=== PATIENT | male | born 1975 | race Hispanic/Latino ===

== ENCOUNTER 2018-11-27 18:56 | Emergency (ER) | payer OTHER ==
[2018-11-27] MEDS ORDERED: KETOROLAC TROMETHAMINE 15MG/ML ONE (19:38)
[2018-11-27] MEDS ORDERED: TETANUS/DIPHTHERIA TOXOID [ADULT] 0.5 ML VIAL IM ONE (19:39)
[2018-11-27 19:44] LABS: BASOPHILS % (AUTO) 0.9 % (0.0-5.0); EOSINOPHILS % (AUTO) 0.9 % (0.0-8.0); HEMATOCRIT 45.7 % (42-54); LYMPHOCYTES % (AUTO) 13.5 % (21.0-51.0); MEAN CORPUSCULAR HEMOGLOBIN 32.7 pg (27.0-33.0); MEAN CORPUSCULAR HGB CONC 33.9 g/dL (32.0-36.0); MEAN CORPUSCULAR VOLUME 96.4 fL (79-99); MONOCYTES % (AUTO) 7.5 % (3.0-13.0); NEUTROPHILS % (AUTO) 77.2 % (40.0-77.0); NUCLEATED RED BLOOD CELLS 0.1 % (0.0-0.19); PLATELET COUNT (AUTO) 283 K/uL (130-400); RED BLOOD CELL COUNT(AUTO) 4.75 MIL/uL (4.50-6.20); RED CELL DISTRIBUTION WIDTH 13.9 % (11.0-15.5); WHITE BLOOD COUNT (AUTO) 11.9 K/uL (4.8-10.8)
[2018-11-27 19:52] LABS: POTASSIUM 4.2 mmol/L (3.5-5.1)
[2018-11-27 19:57] LABS: ALBUMIN 3.7 g/dL (3.5-5.0); BILIRUBIN,TOTAL 0.2 mg/dL (0.2-1.0); TOTAL PROTEIN, SERUM 6.8 g/dL (6.0-8.3)
[2018-11-27] MEDS ORDERED: IOHEXOL-350 50ML VIAL IV ONE ×2 (20:53→21:21)
== END 2018-11-27 23:07 | disposition home or self-care (01) ==
LOC: EDH 18:56
DX: S06.0X0A Concussion without loss of consciousness, initial encounter (principal); S50.12XA Contusion of left forearm, initial encounter; S30.0XXA Contusion of lower back and pelvis, initial encounter; S10.93XA Contusion of unspecified part of neck, initial encounter; Z90.49 Acquired absence of other specified parts of digestive tract; Z88.0 Allergy status to penicillin; Y04.8XXA Assault by other bodily force, initial encounter; Y93.89 Activity, other specified; Y92.89 Other specified places as the place of occurrence of the external cause; Y99.8 Other external cause status
CPT/HCPCS: 36415; 70450; 70491; 71045; 73090; 80053; 85025; 90471; 90714; 96374; 99285; J1885; Q9967 ×2

== ENCOUNTER 2019-05-21 13:27 | Emergency (ER) | payer SELFPAY ==
[2019-05-21] MEDS ORDERED: ACETAMINOPHEN EXTRA STRENGTH 500 MG TABLET ONE (13:46)
[2019-05-21] MEDS ORDERED: HYDROXYZINE HCL 25 MG TABLET ONE (13:46)
== END 2019-05-21 14:12 | disposition home or self-care (01) ==
LOC: EDH 13:27
DX: F41.8 Other specified anxiety disorders (principal); M79.10 Myalgia, unspecified site; F32.9 Major depressive disorder, single episode, unspecified; Z90.49 Acquired absence of other specified parts of digestive tract; Z72.0 Tobacco use; Z88.0 Allergy status to penicillin

== ENCOUNTER 2019-05-23 11:55 | Emergency (ER) | payer SELFPAY | END 2019-05-23 12:54 | LOC: EDH 11:55 | DX: S00.83XA Contusion of other part of head, initial encounter (principal); H02.844 Edema of left upper eyelid; F32.9 Major depressive disorder, single episode, unspecified; F41.9 Anxiety disorder, unspecified; Z72.0 Tobacco use; Z88.0 Allergy status to penicillin; Y04.0XXA Assault by unarmed brawl or fight, initial encounter; Y93.89 Activity, other specified; Y92.89 Other specified places as the place of occurrence of the external cause; Y99.8 Other external cause status ==

== ENCOUNTER 2021-10-26 20:50 | Emergency (ER) | payer OTHER ==
[2021-10-26] MEDS ORDERED: NITROGLYCERIN 1GM OINT 1 INCH/1GM TD ONE ×2 (21:00→21:30)
[2021-10-26] MEDS ORDERED: ASPIRIN 325MG TAB ONE (21:00)
[2021-10-26 21:15] LABS: BASOPHILS % (AUTO) 0.8 % (0.0-5.0); EOSINOPHILS % (AUTO) 0.2 % (0.0-8.0); HEMATOCRIT 43.2 % (42-54); LYMPHOCYTES % (AUTO) 11.3 % (21.0-51.0); MEAN CORPUSCULAR HEMOGLOBIN 30.6 pg (27.0-33.0); MEAN CORPUSCULAR HGB CONC 33.3 g/dL (32.0-36.0); MEAN CORPUSCULAR VOLUME 91.9 fL (79-99); MONOCYTES % (AUTO) 7.3 % (3.0-13.0); NEUTROPHILS % (AUTO) 79.5 % (40.0-77.0); PLATELET COUNT (AUTO) 344 K/uL (130-400); RED CELL DISTRIBUTION WIDTH 13.1 % (11.0-15.5); WHITE BLOOD COUNT (AUTO) 13.1 K/uL (4.8-10.8)
[2021-10-26] MEDS ORDERED: ASPIRIN 325MG TAB PO ONE (21:30)
[2021-10-26 21:32] LABS: CREATININE 1.4 mg/dL (0.5-1.5)
[2021-10-26 21:39] LABS: ALBUMIN 4.6 g/dL (3.5-5.0); BILIRUBIN,TOTAL 0.5 mg/dL (0.2-1.0); TOTAL PROTEIN, SERUM 8.3 g/dL (6.0-8.3)
[2021-10-26 21:54] LABS: APPEARANCE,URINE Cloudy (CLEAR); BILIRUBIN,URINE Small (NEGATIVE); COLOR,URINE Dark Yellow (YELLOW); GLUCOSE, URINE (UA) Negative (NEGATIVE); KETONES,URINE 40 mg/dL (NEGATIVE); LEUKOCYTE ESTERASE ,URINE Trace (NEGATIVE); NITRATE,URINE Negative (NEGATIVE); OCCULT BLOOD,URINE Negative (NEGATIVE); PH,URINE 5.5 (5.0-8.0); PROTEIN,URINE POS 2+ mg/dL (NEGATIVE)
[2021-10-26] MEDS ORDERED: POTASSIUM BICARB/CIT AC 25 MEQ TABLET.EFF PO ONE (22:00)
[2021-10-26] MEDS ORDERED: ONDANSETRON 4MG INJ IVP ONE (22:00)
[2021-10-26 22:01] LABS: AMPHET/METH SCREEN,URINE NEGATIVE (NEGATIVE); BACTERIA,URINE Few /HPF (None Seen); BARBITURATE SCREEN, URINE NEGATIVE (NEGATIVE); BENZODIAZEPINES SCREEN,URINE NEGATIVE (NEGATIVE); CANNABINOID SCREEN,URINE POSITIVE (NEGATIVE); COCAINE SCREEN,URINE POSITIVE (NEGATIVE); HYALINE CASTS, URINE 0-1 /LPF (0-1 /LPF); MUCUS,URINE Moderate LPF (None Seen); OPIATE SCREEN,URINE NEGATIVE (NEGATIVE); PHENCYCLIDINE SCREEN,URINE NEGATIVE (NEGATIVE); SQUAMOUS EPITHELIAL CELL,UR Few /HPF (0-2)
[2021-10-26 22:30] VITALS: BP 151/106
[2021-10-26] MEDS ORDERED: AMIO200T68 PO (23:29)
[2021-10-26] MEDS ORDERED: ASPI-1197 PO (23:29)
[2021-10-26] MEDS ORDERED: ATOR-2 PO (23:30)
[2021-10-26] MEDS ORDERED: DILT240T13 PO (23:31)
[2021-10-26] MEDS ORDERED: LOSA25TA41 PO (23:32)
[2021-10-26] MEDS ORDERED: ISOS60TA77 PO (23:32)
[2021-10-26] MEDS ORDERED: PRAS10TA9 PO (23:33)
[2021-10-26] MEDS ORDERED: METF-526 PO (23:33)
== END 2021-10-26 22:33 | disposition left against medical advice (07) ==
LOC: EDH 20:50
DX: R07.89 Other chest pain (principal); E87.6 Hypokalemia; F14.10 Cocaine abuse, uncomplicated; R11.2 Nausea with vomiting, unspecified; I10 Essential (primary) hypertension; Z88.0 Allergy status to penicillin; Z79.82 Long term (current) use of aspirin
CPT/HCPCS: 36415; 71045; 80053; 80305; 81001; 84484; 85025; 93005 ×2; 96374; 99285; J2405

== ENCOUNTER 2021-11-01 00:46 | Emergency (ER) | payer OTHER ==
[~2021-11-01] VITALS: Ht 170.2 cm; Wt 99.3 kg
[~2021-11-01 00:46] MED LIST: AMIO200T68 PO; ASPI-1197 PO; ATOR-2 PO; DILT240T13 PO; ISOS60TA77 PO; LOSA25TA41 PO; METF-526 PO; PRAS10TA9 PO
[2021-11-01 01:04] LABS: BASOPHILS % (AUTO) 1.2 % (0.0-5.0); EOSINOPHILS % (AUTO) 1.6 % (0.0-8.0); HEMATOCRIT 39.6 % (42-54); LYMPHOCYTES % (AUTO) 18.5 % (21.0-51.0); MEAN CORPUSCULAR HEMOGLOBIN 30.3 pg (27.0-33.0); MEAN CORPUSCULAR HGB CONC 32.3 g/dL (32.0-36.0); MEAN CORPUSCULAR VOLUME 93.8 fL (79-99); MONOCYTES % (AUTO) 10.8 % (3.0-13.0); NEUTROPHILS % (AUTO) 66.7 % (40.0-77.0); PLATELET COUNT (AUTO) 259 K/uL (130-400); RED BLOOD CELL COUNT(AUTO) 4.22 MIL/uL (4.50-6.20); RED CELL DISTRIBUTION WIDTH 13.2 % (11.0-15.5); WHITE BLOOD COUNT (AUTO) 8.9 K/uL (4.8-10.8)
[2021-11-01 01:13] LABS: CREATININE 0.8 mg/dL (0.5-1.5); POTASSIUM 3.3 mmol/L (3.5-5.1)
[2021-11-01 01:18] LABS: ALBUMIN 3.5 g/dL (3.5-5.0); BILIRUBIN,TOTAL 0.1 mg/dL (0.2-1.0); TOTAL PROTEIN, SERUM 6.5 g/dL (6.0-8.3)
[2021-11-01 02:00] LABS: APPEARANCE,URINE Clear (CLEAR); BILIRUBIN,URINE Negative (NEGATIVE); COLOR,URINE Yellow (YELLOW); GLUCOSE, URINE (UA) Negative (NEGATIVE); KETONES,URINE Negative (NEGATIVE); LEUKOCYTE ESTERASE ,URINE Negative (NEGATIVE); NITRATE,URINE Negative (NEGATIVE); OCCULT BLOOD,URINE Negative (NEGATIVE); PROTEIN,URINE Negative (NEGATIVE)
[2021-11-01] MEDS ORDERED: ASPIRIN 81MG CHEW TAB PO ONE (02:00)
[2021-11-01] MEDS ORDERED: NITROGLYCERIN 1GM OINT 1 INCH/1GM TD ONE (02:00)
[2021-11-01 02:08] LABS: AMPHET/METH SCREEN,URINE NEGATIVE (NEGATIVE); BARBITURATE SCREEN, URINE NEGATIVE (NEGATIVE); BENZODIAZEPINES SCREEN,URINE NEGATIVE (NEGATIVE); CANNABINOID SCREEN,URINE POSITIVE (NEGATIVE); COCAINE SCREEN,URINE POSITIVE (NEGATIVE); OPIATE SCREEN,URINE NEGATIVE (NEGATIVE); PHENCYCLIDINE SCREEN,URINE NEGATIVE (NEGATIVE)
[2021-11-01 02:30] VITALS: BP 143/81
== END 2021-11-01 02:49 | disposition left against medical advice (07) ==
LOC: EDH 00:46
DX: R07.89 Other chest pain (principal); F14.10 Cocaine abuse, uncomplicated; I25.2 Old myocardial infarction; Z88.0 Allergy status to penicillin; Z79.84 Long term (current) use of oral hypoglycemic drugs; Z79.899 Other long term (current) drug therapy; Z79.82 Long term (current) use of aspirin; Z90.89 Acquired absence of other organs
CPT/HCPCS: 36415; 71045; 80053; 80305; 81003; 84484; 85025; 93005

== ENCOUNTER 2022-01-06 19:19 | Emergency (ER) | payer OTHER ==
[~2022-01-06] VITALS: Ht 170.2 cm; Wt 95.3 kg
[2022-01-06 19:31] LABS: BASOPHILS % (AUTO) 1.4 % (0.0-5.0); EOSINOPHILS % (AUTO) 1.6 % (0.0-8.0); HEMATOCRIT 42.9 % (42-54); LYMPHOCYTES % (AUTO) 19.5 % (21.0-51.0); MEAN CORPUSCULAR HEMOGLOBIN 31.2 pg (27.0-33.0); MEAN CORPUSCULAR HGB CONC 32.9 g/dL (32.0-36.0); MEAN CORPUSCULAR VOLUME 94.9 fL (79-99); MONOCYTES % (AUTO) 9.2 % (3.0-13.0); NEUTROPHILS % (AUTO) 67.7 % (40.0-77.0); PLATELET COUNT (AUTO) 317 K/uL (130-400); RED BLOOD CELL COUNT(AUTO) 4.52 MIL/uL (4.50-6.20); RED CELL DISTRIBUTION WIDTH 12.9 % (11.0-15.5)
[2022-01-06 19:42] LABS: APPEARANCE,URINE CLEAR (CLEAR); BILIRUBIN,URINE NEGATIVE (NEGATIVE); COLOR,URINE YELLOW (YELLOW); GLUCOSE, URINE (UA) NEGATIVE (NEGATIVE); KETONES,URINE NEGATIVE (NEGATIVE); LEUKOCYTE ESTERASE ,URINE NEGATIVE (NEGATIVE); NITRATE,URINE NEGATIVE (NEGATIVE); OCCULT BLOOD,URINE NEGATIVE (NEGATIVE); PH,URINE 6.5 (5.0-8.0); PROTEIN,URINE NEGATIVE (NEGATIVE); UROBILINOGEN,URINE 0.2 mg/dL (0.2-1.0)
[2022-01-06 19:43] LABS: CREATININE 0.8 mg/dL (0.5-1.5); POTASSIUM 4.2 mmol/L (3.5-5.1)
[2022-01-06 19:48] LABS: ALBUMIN 3.8 g/dL (3.5-5.0); BILIRUBIN,TOTAL 0.2 mg/dL (0.2-1.0); TOTAL PROTEIN, SERUM 7.5 g/dL (6.0-8.3)
[2022-01-06 19:48] LABS: AMPHET/METH SCREEN,URINE NEGATIVE (NEGATIVE); BARBITURATE SCREEN, URINE NEGATIVE (NEGATIVE); BENZODIAZEPINES SCREEN,URINE NEGATIVE (NEGATIVE); CANNABINOID SCREEN,URINE POSITIVE (NEGATIVE); COCAINE SCREEN,URINE POSITIVE (NEGATIVE); OPIATE SCREEN,URINE NEGATIVE (NEGATIVE); PHENCYCLIDINE SCREEN,URINE NEGATIVE (NEGATIVE)
[2022-01-06] MEDS ORDERED: ASPIRIN 81MG CHEW TAB PO ONE (20:00)
[2022-01-06] MEDS ORDERED: KETOROLAC 15MG/ML VIAL (15MG/ML) IV ONE (20:00)
[2022-01-06] MEDS ORDERED: 0.9%NACL 1000ML 1,000 ML IV ONE (20:00)
[2022-01-06] MEDS ORDERED: ISOS60TA77 PO (21:06)
[2022-01-06] MEDS ORDERED: DILT240C94 PO (21:06)
[2022-01-06] MEDS ORDERED: CLOP75TA14 PO (21:06)
[2022-01-06 21:08] VITALS: BP 135/62
== END 2022-01-06 21:40 | disposition home or self-care (01) ==
LOC: EDH 19:19
DX: R07.89 Other chest pain (principal); E86.0 Dehydration; E11.9 Type 2 diabetes mellitus without complications; I10 Essential (primary) hypertension; F17.200 Nicotine dependence, unspecified, uncomplicated; Z88.0 Allergy status to penicillin; Z79.899 Other long term (current) drug therapy; Z79.84 Long term (current) use of oral hypoglycemic drugs; Z79.82 Long term (current) use of aspirin; Z90.89 Acquired absence of other organs; Z98.890 Other specified postprocedural states
CPT/HCPCS: 36415; 71045; 80053; 80305; 81003; 84484; 85025; 93005; 96361; 96374; 99285; J1885; J7030

== ENCOUNTER 2022-04-13 15:18 | Emergency (ER) | payer OTHER ==
[~2022-04-13] VITALS: Ht 170.2 cm; Wt 99.3 kg
[~2022-04-13 15:18] MED LIST changes: +CLOP75TA14 PO; +DILT240C94 PO
[2022-04-13 15:47] LABS: BASOPHILS % (AUTO) 1.4 % (0.0-5.0); EOSINOPHILS % (AUTO) 1.4 % (0.0-8.0); HEMATOCRIT 45.6 % (42-54); LYMPHOCYTES % (AUTO) 12.7 % (21.0-51.0); MEAN CORPUSCULAR HEMOGLOBIN 30.9 pg (27.0-33.0); MEAN CORPUSCULAR HGB CONC 33.1 g/dL (32.0-36.0); MEAN CORPUSCULAR VOLUME 93.4 fL (79-99); MONOCYTES % (AUTO) 8.2 % (3.0-13.0); NEUTROPHILS % (AUTO) 74.5 % (40.0-77.0); PLATELET COUNT (AUTO) 276 K/uL (130-400); RED BLOOD CELL COUNT(AUTO) 4.88 MIL/uL (4.50-6.20); RED CELL DISTRIBUTION WIDTH 13.1 % (11.0-15.5); WHITE BLOOD COUNT (AUTO) 10.7 K/uL (4.8-10.8)
[2022-04-13] MEDS ORDERED: LIDOCAINE HCL 2% VISCOUS 15 ML UDCUP ONE (15:53)
[2022-04-13] MEDS ORDERED: DICYCLOMINE HCL 10 MG/5 ML ML PO ONE ×2 (15:54→16:00)
[2022-04-13] MEDS ORDERED: LACTATED RINGERS 1000ML 1,000 ML IV ONE ×2 (15:54→16:00)
[2022-04-13] MEDS ORDERED: PANTOPRAZOLE 40 MG/VIAL ONE (15:54)
[2022-04-13] MEDS ORDERED: MAG/ALUM/SIMETH 30 ML UDCUP ONE (15:54)
[2022-04-13] MEDS ORDERED: ONDANSETRON 4MG INJ ONE (15:54)
[2022-04-13 15:55] LABS: CREATININE 0.9 mg/dL (0.5-1.5); POTASSIUM 3.6 mmol/L (3.5-5.1)
[2022-04-13 16:00] LABS: ALBUMIN 3.2 g/dL (3.5-5.0); TOTAL PROTEIN, SERUM 6.3 g/dL (6.0-8.3)
[2022-04-13] MEDS ORDERED: LIDOCAINE HCL 2% VISCOUS 15 ML UDCUP PO ONE (16:00)
[2022-04-13] MEDS ORDERED: ONDANSETRON 4MG INJ IVP ONE (16:00)
[2022-04-13] MEDS ORDERED: PANTOPRAZOLE 40 MG/VIAL IVP ONE (16:00)
[2022-04-13] MEDS ORDERED: MAG/ALUM/SIMETH 30 ML UDCUP PO ONE (16:00)
[2022-04-13 17:15] VITALS: BP 142/86
[2022-04-13] MEDS ORDERED: PANT40TA55 PO (17:21)
== END 2022-04-13 17:30 | disposition home or self-care (01) ==
LOC: EDH 15:18
DX: K29.70 Gastritis, unspecified, without bleeding (principal); I10 Essential (primary) hypertension; F17.200 Nicotine dependence, unspecified, uncomplicated; I25.2 Old myocardial infarction; Z88.0 Allergy status to penicillin; Z79.82 Long term (current) use of aspirin; Z79.899 Other long term (current) drug therapy; Z90.49 Acquired absence of other specified parts of digestive tract; Z95.5 Presence of coronary angioplasty implant and graft
CPT/HCPCS: 99284; 96374; 96361; 96375; 82550; 84484; 80053; 83690; 85025; 36415; 93005; J7120; J2405; C9113

== ENCOUNTER 2023-05-21 23:06 | Emergency (ER) | payer BC ==
[~2023-05-21] VITALS: Ht 170.2 cm; Wt 98.9 kg
[~2023-05-21 23:06] MED LIST changes: +CLOP-31 PO; -CLOP75TA14 PO; +DILT240C81 PO; -DILT240C94 PO; +PANT40TA55 PO
[2023-05-21 23:52] LABS: COVID19 (SARS ANTIGEN RAPID) PRESUMPTIVE NEGATIVE (NEGATIVE); INFLUENZA TYPE A Negative For Type A (NEGATIVE); INFLUENZA TYPE B Negative For Type B (NEGATIVE)
[2023-05-22] MEDS ORDERED: GUAI600T50 PO (00:18)
[2023-05-22] MEDS ORDERED: [UNRECOGNIZED DRUG - CODE] PO (00:18)
[2023-05-22 00:22] VITALS: BP 135/87; PULSE 76; RESP 17; O2SAT 97
== END 2023-05-22 00:26 | disposition home or self-care (01) ==
LOC: EDH 23:06
DX: J01.90 Acute sinusitis, unspecified (principal); B34.9 Viral infection, unspecified; E11.9 Type 2 diabetes mellitus without complications; F17.200 Nicotine dependence, unspecified, uncomplicated; I10 Essential (primary) hypertension; Z79.02 Long term (current) use of antithrombotics/antiplatelets; Z79.82 Long term (current) use of aspirin; Z79.899 Other long term (current) drug therapy; Z88.0 Allergy status to penicillin; Z90.49 Acquired absence of other specified parts of digestive tract; Z95.5 Presence of coronary angioplasty implant and graft; Z20.822 Contact with and (suspected) exposure to COVID-19
CPT/HCPCS: 87426; 87804; 87880

== ENCOUNTER 2024-01-20 13:38 | Emergency (ER) | payer BC ==
[~2024-01-20] VITALS: Ht 170.2 cm; Wt 91.2 kg
[~2024-01-20 13:38] MED LIST changes: +GUAI600T50 PO; +[UNRECOGNIZED DRUG - CODE] PO
[2024-01-20 15:38] LABS: APPEARANCE,URINE CLEAR (CLEAR); BILIRUBIN,URINE NEGATIVE (NEGATIVE); COLOR,URINE YELLOW (YELLOW); GLUCOSE, URINE (UA) NEGATIVE (NEGATIVE); KETONES,URINE NEGATIVE (NEGATIVE); LEUKOCYTE ESTERASE ,URINE NEGATIVE Leu/uL (NEGATIVE); NITRATE,URINE NEGATIVE (NEGATIVE); OCCULT BLOOD,URINE NEGATIVE (NEGATIVE); PROTEIN,URINE 10 mg/dL (NEGATIVE)
[2024-01-20 15:58] LABS: ADD UA MICROSCOPIC YES
[2024-01-20 15:59] LABS: BACTERIA,URINE RARE /HPF (None Seen); MUCUS,URINE RARE LPF (None Seen); RBC,URINE 0-1 /HPF (0-1); SQUAMOUS EPITHELIAL CELL,UR RARE /HPF (0-2); WBC,URINE 0-1 /HPF (0-1)
[2024-01-20] MEDS ORDERED: POLY17PO4 PO (16:42)
[2024-01-20 16:47] VITALS: BP 121/80; PULSE 80; RESP 16; O2SAT 95
== END 2024-01-20 16:50 | disposition home or self-care (01) ==
LOC: EDH 13:38
DX: K59.00 Constipation, unspecified (principal); I10 Essential (primary) hypertension; F17.200 Nicotine dependence, unspecified, uncomplicated; I25.2 Old myocardial infarction; Z79.02 Long term (current) use of antithrombotics/antiplatelets; Z79.82 Long term (current) use of aspirin; Z79.899 Other long term (current) drug therapy; Z88.0 Allergy status to penicillin; Z90.49 Acquired absence of other specified parts of digestive tract; Z95.5 Presence of coronary angioplasty implant and graft
CPT/HCPCS: 74018; 81001

== ENCOUNTER 2025-05-02 23:05 | Emergency (ER) | payer BC ==
[~2025-05-02] VITALS: Ht 170.2 cm; Wt 81.6 kg
[~2025-05-02 23:05] MED LIST changes: -AMIO200T68 PO; +AMIO200T73 PO; +POLY17PO4 PO
[2025-05-02 23:16] VITALS: BP 135/71; PULSE 87; RESP 20; TEMP 97.8
--- NOTE | 2025-05-02 23:20 | NUR ---
UA CUP PROVIDED
--- NOTE | 2025-05-02 23:29 | ERN ---
ED Note History of Present Illness Stated Complaint: FLANK PAIN Chief Complaint: Flank Pain Time Seen by MD: 23:22 Dictation: PATIENT IS A 49-YEAR-OLD MALE COMING IN TODAY WITH COMPLAINTS OF LEFT FLANK PAIN THAT RADIATES TO LEFT UPPER AND LOWER QUADRANTS WITH NAUSEA ONSET WAS THREE DAYS PRIOR TO ARRIVAL NO FEVER NO CHILLS STATES HE DID HAVE DIARRHEA TODAY. HE HAS NOT TAKEN TO ARRIVAL FOR PAIN STATES HE HAS A AN APPOINTMENT WITH HIS DOCTOR TOMORROW. STATES HE ALSO HAS A HISTORY OF RENAL STONES. Allergies: Coded Allergies: Penicillins (Unverified Allergy, Unknown, 11/27/18) Home Meds Active Scripts Polyethylene Glycol 3350 (Miralax) 17 Gram Powd.pack, 17 GM PO DAILY for constipation for 7 Days, #20 PACKET 0 Refills Prov:MARITA LU MD 01/20/24 Guaifenesin/Dm/Acetaminophen (Coricidin Hbp Max Pjoc-Bpf-Cwq) 200 Mg-10 Mg-325 Mg/15 Ml Liquid, 355 ML PO BID, #355 ML Prov:LESTER MAYER 05/22/23 Guaifenesin (Mucinex) 600 Mg Tablet.er, 600 MG PO BID, #14 TAB Prov:LESTER MAYER 05/22/23 Pantoprazole Sodium (Protonix) 40 Mg Ectab, 40 MG PO DAILY for 30 Days, #30 TAB.EC Prov:NIMISHA DOSS MD 04/13/22 Diltiazem HCl (Diltiazem ER) 240 Mg Capsule.er, 240 MG PO DAILY, #30 CAP Prov:GENA PULIDO MD 01/06/22 Isosorbide Mononitrate (Isosorbide Mononitrate ER) 60 Mg Tab.er.24h, 60 MG PO DAILY, #30 TAB Prov:GENA PULIDO MD 01/06/22 Clopidogrel Bisulfate (Plavix) 75 Mg Tablet, 75 MG PO DAILY, #30 TAB Prov:GENA PULIDO MD 01/06/22 Reported Medications Prasugrel HCl (Prasugrel HCl) 10 Mg Tablet, 10 MG PO DAILY, TAB 10/26/21 Metformin HCl (Metformin HCl ER) 500 Mg Tab.er.24, 500 MG PO DAILYDINNER 10/26/21 Losartan Potassium (Losartan Potassium) 25 Mg Tablet, 25 MG PO DAILY, TAB 10/26/21 Isosorbide Mononitrate (Isosorbide Mononitrate ER) 60 Mg Tab.er.24h, 60 MG PO DAILY, TAB 10/26/21 Diltiazem HCl (Diltiazem ER) 240 Mg Tab.er.24h, 240 MG PO DAILY, TAB 10/26/21 Atorvastatin Calcium (Atorvastatin Calcium) 80 Mg Tablet, 80 MG PO HS, TAB 10/26/21 Aspirin (Aspirin) 81 Mg Tab.chew, 81 MG PO DAILY, TAB.CHEW 10/26/21 Amiodarone HCl (Amiodarone HCl) 200 Mg Tablet, 200 MG PO DAILY, TAB 10/26/21 Past Medical History Past Medical History: Constipation, Hypertension, NM Additional Past Medical Hx: CARDIAC STENT Surgical History: Appendectomy Surgical History Other: CARDIAC STENT X 1 Social History: Smokers, Drugs, ETOH, Other RN Note Reviewed/Agreed w/PFSH: Yes Review of System Dictation CONSTITUTIONAL: NEGATIVE EXCEPT FOR HPI HEAD/FACE: NEGATIVE EXCEPT FOR HPI EENT: NEGATIVE EXCEPT FOR HPI RESPIRATORY: NEGATIVE EXCEPT FOR HPI GASTROINTESTINAL/ABDOMINAL: NEGATIVE EXCEPT FOR HPI LEFT FLANK PAIN THAT RADIATES TO LEFT LOWER QUADRANT NAUSEA GENITOURINARY: NEGATIVE EXCEPT FOR HPI MUSCULOSKELETAL: NEGATIVE EXCEPT FOR HPI INTEGUMENTARY: NEGATIVE EXCEPT FOR HPI NEUROLOGICAL/PSYCH: NEGATIVE EXCEPT FOR HPI HEMATOLOGIC/LYMPHATIC: NEGATIVE EXCEPT FOR HPI ALL SYSTEMS NEGATIVE, EXCEPT NOTED ABOVE. 13 POINT REVIEW OF SYSTEMS ASSESSED AND ALL NEGATIVE EXCEPT FOR ABOVE. Initial Vital Sign VS Vital Signs Date Time Temp Pulse Resp B/P (MAP) Pulse Ox O2 Delivery O2 Flow Rate FiO2 05/02/25 23:16 97.9 87 20 135/71 97 Room Air Physical Exam Dictation VITAL SIGNS REVIEWED GENERAL APPEARANCE: ALERT, ORIENTED X 3, MODERATE ACUTE DISTRESS, WELL DEVELOPED, NOURISHED. OBESE HEAD AND FACE: NON-TRAUMATIC. EYES: PERRL, PINK CONJUNCTIVAS, EYELID NO TRAUMA, ANTERIOR CHAMBER WITH ARCUS SENILIS. EARS: PINNAS INTACT AND NO SIGNS OF TRAUMA OR ERYTHEMA EAR CANALS CLEAR AND NO DISCHARGE TM NO ERYTHEMA NOSE: NO DISCHARGE, NO BLEEDING. OROPHARYNX: MOUTH NORMAL, TONGUE PINK, PHARYNX CLEAR,NO ERYTHEMA, TONSILS NO EXUDATES, NO ABSCESSES NOTED, MUCOUS MEMBRANE MOIST NECK: SUPPLE, NON-TENDER, NO THYROMEGALY, NO MASSES, NO JVD, NO BRUITS BREAST:DEFERRED CHEST:NO TENDERNESS, NO CREPITUS, NO PARADOXICAL MOVEMENT, NO RETRACTIONS LUNGS:CLEAR, WELL-VENTILATED, SYMMETRIC, NO RALES, NO WHEEZING, NO RHONCHI, NO STRIDOR, GOOD BREATH SOUNDS BILATERALLY HEART: REGULAR RATE, REGULAR RHYTHM, NO MURMUR, NO GALLOPS VASCULAR: NO PERIPHERAL EDEMA, ABDOMEN: SOFT, POSITIVE BOWEL SOUNDS, MODERATE LEFT UPPER QUADRANT AND LEFT FLANK PAIN. RECTAL: DEFERRED GENITAL: DEFERRED NEUROLOGICAL: NORMAL SPEECH, MOTOR FUNCTION INTACT, SENSORY FUNCTION INTACT MUSCULOSKELETAL: NECK NONTENDER, FULL RANGE OF MOTION, BACK NONTENDER, FULL RAN GE OF MOTION, EXTREMITIES: NONTENDER, FULL RANGE OF MOTION SKIN: COLOR PINK, DRY, NO TURGOR, NO RASH, NO LACERATIONS, NO ABRASIONS, NO CONTUSIONS. LYMPHATIC: DEFERRED Results (Laboratory/Radiology) Laboratory/Radiology Laboratory Tests Test 05/02/25 23:25 05/02/25 23:33 Urine Color YELLOW (YELLOW) Urine Appearance CLEAR (CLEAR) Urine pH 5.5 (5.0-8.0) Urine Specific [place] 1.026 (1.001-1.031) Urine Protein NEGATIVE mg/dL (NEGATIVE) Urine Glucose (UA) NEGATIVE mg/dL (NEGATIVE) Urine Ketones NEGATIVE mg/dL (NEGATIVE) Urine Occult Blood NEGATIVE (NEGATIVE) Urine Nitrate NEGATIVE (NEGATIVE) Urine Bilirubin NEGATIVE mg/dL (NEGATIVE) Urine Urobilinogen 2.0 mg/dL (0.2-1.0) H Urine Leukocyte Esterase NEGATIVE [place]ena/uL Urine RBC 0-1 /HPF (0-1) Urine WBC 0-1 /HPF (0-1) Urine Squamous Epithelial Cells RARE /HPF (0-2) Urine Bacteria None /HPF (None Seen) Urine Opiates Screen NEGATIVE (NEGATIVE) Urine Barbiturates Screen NEGATIVE (NEGATIVE) Urine Phencyclidine Screen NEGATIVE (NEGATIVE) Urine Amphetamines Screen NEGATIVE (NEGATIVE) Urine Benzodiazepines Screen NEGATIVE (NEGATIVE) Urine Cocaine Screen NEGATIVE (NEGATIVE) Urine Marijuana (THC) Screen POSITIVE (NEGATIVE) H White Blood Count 6.7 K/uL (4.8-10.8) Red Blood Count 4.15 MIL/uL (4.50-6.20) L Hemoglobin 13.2 g/dL (14.0-18.0) L Hematocrit 39.9 % (42-54) L Mean Corpuscular Volume 96.1 fL (79-99) Mean Corpuscular Hemoglobin 31.8 pg (27.0-33.0) Mean Corpuscular Hemoglobin Concent 33.1 g/dL (32.0-36.0) Red Cell Distribution Width 13.2 % (11.0-15.5) Platelet Count 271 K/uL (130-400) Mean Platelet Volume 10.9 fL (7.5-10.5) H Immature Granulocyte % (Auto) 0.4 % (0-1) Neutrophils (%) (Auto) 60.0 % (40.0-77.0) Lymphocytes (%) (Auto) 24.7 % (21.0-51.0) Monocytes (%) (Auto) 9.7 % (3.0-13.0) Eosinophils (%) (Auto) 3.4 % (0.0-8.0) Basophils (%) (Auto) 1.8 % (0.0-5.0) Neutrophils # (Auto) 4.0 K/uL (1.8-7.7) Lymphocytes # (Auto) 1.7 K/uL (1.0-4.8) Monocytes # (Auto) 0.7 K/uL (0.1-1.0) Eosinophils # (Auto) 0.23 K/uL (0.00-0.70) Basophils # (Auto) 0.12 K/uL (0.00-0.20) Absolute Immature Granulocyte (auto 0.03 K/uL (0-1) Nucleated Red Blood Cells 0.0 % (0.0-0.19) Sodium Level 143 mmol/L (136-145) Potassium Level 4.0 mmol/L (3.5-5.1) Chloride Level 108 mmol/L (101-111) Carbon Dioxide Level 25 mmol/L (21-32) Blood Urea Nitrogen 11 mg/dL (7-18) Creatinine 0.8 mg/dL (0.5-1.3) Glomerular Filtration Rate Calc 109 mL/min (>90) Random Glucose 102 mg/dL (70-105) Total Calcium 8.5 mg/dL (8.5-10.1) Lipase 63 U/L (16-77) CLINICAL HISTORY: Left flank pain that radiates to the left lower quadrant. TECHNIQUE: Thin collimated axial CT images of the abdomen and pelvis were obtained, with sagittal and coronal reformatted images also submitted. A CT scan is done according to ALARA (As Low As Reasonably Achievable). CONTRAST: None. COMPARISON: None. FINDINGS: Unremarkable visualized lung parenchyma. No focal abnormality within the liver, gallbladder, pancreas, spleen, adrenals, or kidneys. Mild colonic diverticulosis with no acute diverticulitis. There is no obvious bowel wall thickening. Bowel loops are normal in caliber without evidence of obstruction or ileus. No acute appendicitis with There is no abnormality within the urinary bladder. Unremarkable reproductive organs. No lymphadenopathy. No free fluid. Mild scattered calcific atherosclerotic disease in the abdominal aorta and its branches. There is no acute osseous abnormality. Mild thoracolumbar spondylosis. IMPRESSIONS: No acute process in the abdomen or pelvis. Mild colonic diverticulosis with no acute diverticulitis. No renal or ureteric calculus. Mild thoracolumbar spondylosis. /[place] Labs Reviewed?: Yes ED Course ED Course Orders Procedure Category Date Status Time Vital Signs Per CPOE 05/02/25 Transmitted Routine 23:18 Saline Lock Iv CPOE 05/02/25 Transmitted 23:18 Cbc With Differential LAB 05/02/25 Complete 23:18 Lipase LAB 05/02/25 Complete 23:18 Urinalysis Profile LAB 05/02/25 Complete 23:18 Basic Metabolic Panel LAB 05/02/25 Complete 23:18 Drug Screen Urine LAB 05/02/25 Complete 23:18 0.9%Nacl 1000ml (Ns PHA 05/02/25 Complete 1000ml) 23:30 Ketorolac PHA 05/02/25 Complete Tromethamine 30mg/Ml 23:30 Ct Abdomen/Pelvis W/O CT 05/02/25 Resulted Contrast 23:26 Current Medications Medications (Trade) Dose Ordered Sig/Amol Route PRN Reason Start Time Stop Time Status Last Admin Dose Admin Ketorolac Tromethamine (toRADol) 30 mg ONCE ONCE IVP 05/02/25 23:30 05/02/25 23:31 DC Sodium Chloride 1,000 ml @ 0 mls/hr ONCE ONCE IV 05/02/25 23:30 05/02/25 23:31 DC Vital Signs Date Time Temp Pulse Resp B/P (MAP) Pulse Ox O2 Delivery O2 Flow Rate FiO2 05/02/25 23:16 97.9 87 20 135/71 97 Room Air Medical Decision Making MDM MDM: DIFFERENTIAL DIAGNOSIS: PANCREATITIS/UROLITHIASIS URETERAL COLIC/PYELONEPHRITIS/LUMBAR PAIN/ELECTROLYTE IMBALANCE/DEHYDRATION/UTI RATIONALE: TESTS CONSIDERED AND ORDERED SECONDARY TO SHARED DECISION MAKING INCLUDE: RADIOLOGY/LABS PREVIOUS OUTSIDE RECORDS REVIEWED: OLD ER VISITS. RISK OF COMPLICATION AND/OR MORBIDITY OR MORTALITY OF PATIENT MANAGEMENT: NONE MEDICATIONS-PER MEDICATION RECONCILIATION NEED FOR HOSPITALIZATION: PATIENT DOES NOT MEET CRITERIA FOR HOSPITALIZATION. NONE NEED FOR EMERGENCY MAJOR/MINOR SURGERY: NO THERE ARE NO SOCIAL CONCERNS WITH THIS PATIENT. PRESCRIPTION DRUG MANAGEMENT FLEXERIL AND IBUPROFEN PRESCRIPTIONS WILL INCLUDE SYMPTOMATIC CARE PATIENT'S PRIOR EXTERNAL MEDICAL RECORDS FROM OTHER ER VISITS WERE REVIEWED BY ME INDICATED. PRIOR TESTING AND RESULTS FROM PREVIOUS VISITS WERE REVIEWED. PRIOR TESTS WERE TAKEN INTO ACCOUNT WITH MEDICAL DECISION MAKING AND RESOURCE UTILIZATION, INDEPENDENT HISTORIAN/HISTORIANS WERE USED TO OBTAIN COMPLETE MEDICAL HISTORY. I INDEPENDENTLY INTERPRETED THE TEST THAT WERE PERFORMED, RESULTS WERE REVIEWED BY ME AND CONSIDERED FINDINGS ON RADIOLOGY IF ORDERED. MEDICAL MANAGEMENT AND EXAMINATION INTERPRETATION DISCUSSIONS WERE HAD BY ME WITH OTHER QUALIFIED HEALTHCARE PROFESSIONALS INDICATED FOR THE PATIENT'S CARE. DX & DISP Disposition: Discharge Departure Impression: Primary Impression: Acute lumbar back pain Condition: Stable Scripts Ibuprofen (Ibuprofen 800 mg Tab) 800 Mg Tab 800 MG PO Q8H PRN for fever or pain, #30 TAB 0 Refills Prov: OKSANA JIMÉNEZ 05/03/25 Cyclobenzaprine HCl (Cyclobenzaprine HCl) 10 Mg Tablet 1 TAB PO TID for muscle spasms for 10 Days, #30 TAB 0 Refills Prov: OKSANA JIMÉNEZ 05/03/25 Additional Instructions: FOLLOW-UP WITH PRIMARY CARE PROVIDER IN 1 TO 2 DAYS. TAKE MEDICATIONS DIRECTED HERE IN THE EMERGENCY ROOM. OKAY TO CONTINUE HOME MEDICATIONS UNLESS OTHERWISE DISCUSSED DURING YOUR VISIT IN THE EMERGENCY ROOM TODAY. RETURN TO YOUR NEAREST EMERGENCY ROOM IF SYMPTOMS WORSEN OR IF THERE IS NO IMPROVEMENT. CALL 911 IF YOU NEED IMMEDIATE ASSISTANCE. TAKE TYLENOL OR MOTRIN [id number] NEEDED AND IF NO CONTRAINDICATIONS ARE PRESENT. INCREASE ORAL HYDRATION. A WOUND CULTURE OR URINE CULTURE WAS ORDERED HERE IN THE EMERGENCY ROOM DEPARTMENT PLEASE FOLLOW-UP WITH PRIMARY CARE PROVIDER AND ADVISE THEM TO GET REPEAT PORTS FROM OUR FACILITY. IF YOU HAD ANY MANUEL WRAP/SPLINTS THAT WERE APPLIED HERE, PLEASE DO NOT REMOVE THEM UNTIL YOU SEE YOUR PRIMARY CARE OR SPECIALTY. TAKE IBUPROFEN AND FLEXERIL EVERY 8 HOURS FOR THE NEXT TWO DAYS. WARM COMPRESSES TO BACK THREE TO 4 TIMES A DAY. SEE YOUR PRIMARY CARE DOCTOR FOR FOLLOW UP. Referrals: NEREYDA SHIELDS MD (PCP) Time of Disposition: 01:35 I have reviewed the case, and I agree with, Diagnosis and Plan OKSANA JIMÉNEZ [facility] May 02, 2025 23:29
[2025-05-02] MEDS ORDERED: 0.9%NACL 1000ML 1,000 ML IV ONE (23:30)
[2025-05-02 23:34] LABS: APPEARANCE,URINE CLEAR (CLEAR); GLUCOSE, URINE (UA) NEGATIVE (NEGATIVE); LEUKOCYTE ESTERASE ,URINE NEGATIVE Leu/uL (NEGATIVE); NITRATE,URINE NEGATIVE (NEGATIVE); OCCULT BLOOD,URINE NEGATIVE (NEGATIVE)
[2025-05-02 23:35] LABS: ADD UA MICROSCOPIC YES
[2025-05-02 23:38] LABS: SQUAMOUS EPITHELIAL CELL,UR RARE /HPF (0-2)
[2025-05-02 23:40] LABS: AMPHET/METH SCREEN,URINE NEGATIVE (NEGATIVE); BARBITURATE SCREEN, URINE NEGATIVE (NEGATIVE); CANNABINOID SCREEN,URINE POSITIVE (NEGATIVE); COCAINE SCREEN,URINE NEGATIVE (NEGATIVE)
[2025-05-02 23:41] LABS: IMMATURE GRANULOCYTE ABSOLUTE 0.03 K/uL (0-1); NUCLEATED RED BLOOD CELLS 0.0 % (0.0-0.19); PLATELET COUNT (AUTO) 271 K/uL (130-400); RED BLOOD CELL COUNT(AUTO) 4.15 MIL/uL (4.50-6.20); RED CELL DISTRIBUTION WIDTH 13.2 % (11.0-15.5); WHITE BLOOD COUNT (AUTO) 6.7 K/uL (4.8-10.8)
[2025-05-02 23:52] LABS: CREATININE 0.8 mg/dL (0.5-1.3); GLOMERULAR FILTR. RATE CALC 109.0 mL/min (>90); GLUCOSE,RANDOM 102.0 mg/dL (70-105); SODIUM SERUM 143.0 mmol/L (136-145); UREA NITROGEN, BLOOD 11.0 mg/dL (7-18)
--- NOTE | 2025-05-03 01:06 | HMCIMG ---
EXAM: CT Abdomen and Pelvis without IV contrast. CLINICAL HISTORY: Left flank pain that radiates to the left lower quadrant. TECHNIQUE: Thin collimated axial CT images of the abdomen and pelvis were obtained, with sagittal and coronal reformatted images also submitted. A CT scan is done according to ALARA (As Low As Reasonably Achievable). CONTRAST: None. COMPARISON: None. FINDINGS: Unremarkable visualized lung parenchyma. No focal abnormality within the liver, gallbladder, pancreas, spleen, adrenals, or kidneys. Mild colonic diverticulosis with no acute diverticulitis. There is no obvious bowel wall thickening. Bowel loops are normal in caliber without evidence of obstruction or ileus. No acute appendicitis with There is no abnormality within the urinary bladder. Unremarkable reproductive organs. No lymphadenopathy. No free fluid. Mild scattered calcific atherosclerotic disease in the abdominal aorta and its branches. There is no acute osseous abnormality. Mild thoracolumbar spondylosis. IMPRESSIONS: No acute process in the abdomen or pelvis. Mild colonic diverticulosis with no acute diverticulitis. No renal or ureteric calculus. Mild thoracolumbar spondylosis. /[place]
[2025-05-03] MEDS ORDERED: CYCL-309 PO (01:35)
[2025-05-03] MEDS ORDERED: IBUP-2077 PO (01:35)
--- NOTE | 2025-05-03 01:37 | NUR ---
PT ON PHONE IN LOBBY, GOOD EVEN CHEST RISE AND FALL NOTED
--- NOTE | 2025-05-03 02:04 | NUR ---
PT NOT LOCATED IN LOBBY
--- NOTE | 2025-05-03 02:15 | NUR ---
PT NOT IN LOBBY OR MAIN ER. NO COMMUNICATION WITH STAFF ON DESIRE TO LEAVE
== END 2025-05-03 02:16 | disposition left against medical advice (07) ==
LOC: EDH 23:05
DX: M47.815 Spondylosis without myelopathy or radiculopathy, thoracolumbar region (principal); M54.50 Low back pain, unspecified; F17.200 Nicotine dependence, unspecified, uncomplicated; F10.90 Alcohol use, unspecified, uncomplicated; I10 Essential (primary) hypertension; Z79.82 Long term (current) use of aspirin; Z79.899 Other long term (current) drug therapy; Z90.49 Acquired absence of other specified parts of digestive tract; Z88.0 Allergy status to penicillin; Z79.02 Long term (current) use of antithrombotics/antiplatelets; Z95.5 Presence of coronary angioplasty implant and graft; Z90.89 Acquired absence of other organs
CPT/HCPCS: 36415; 74176; 80048; 80305; 81001; 83690; 85025; 99284

== ENCOUNTER 2025-07-12 18:27 | Emergency (ER) | payer BC ==
[~2025-07-12] VITALS: Ht 170.2 cm; Wt 92.5 kg
[~2025-07-12 18:27] MED LIST changes: +CYCL-309 PO; +IBUP-2077 PO
[2025-07-12 18:29] VITALS: BP 163/80; PULSE 96; RESP 20; TEMP 98.8
--- NOTE | 2025-07-12 20:48 | HMCIMG ---
EXAM: CR right Humerus, 2 View. CLINICAL HISTORY: injury COMPARISON: None provided. FINDINGS: BONES: No acute fracture or aggressive appearing osseous lesion. JOINTS: No dislocation. The joint spaces are normal. SOFT TISSUES: The soft tissues are unremarkable. IMPRESSION: No acute osseous abnormality. /[place]
--- NOTE | 2025-07-12 20:48 | HMCIMG ---
EXAM: CR left Hand, 3 View. CLINICAL HISTORY: injury COMPARISON: None provided. FINDINGS: BONES: No acute osseous pathology evident. JOINTS: No evidence of dislocation. The joint spaces are normal. SOFT TISSUES: The soft tissues appear within normal limits. No radiopaque foreign body is seen. IMPRESSION: No acute pathology evident. No acute fracture or dislocation. /[place]
--- NOTE | 2025-07-12 20:49 | HMCIMG ---
EXAM: CR left elbow, 2 View. CLINICAL HISTORY: injury COMPARISON: CR - [facility] 2VWS LT - 11/27/18 19:20 EDT FINDINGS: BONES: No acute fracture or aggressive appearing osseous lesion. JOINTS: The joint spaces appear within normal limits. No dislocation. No radiographic evidence of a joint effusion. SOFT TISSUES: The soft tissues are unremarkable. IMPRESSION: No acute osseous abnormality. /[place]
--- NOTE | 2025-07-12 20:49 | HMCIMG ---
EXAM: CR left Humerus, 2 View. CLINICAL HISTORY: injury COMPARISON: CR - HUMERUS 2+VWS RT - 07/12/25 19:33 EST FINDINGS: BONES: No acute fracture or aggressive appearing osseous lesion. JOINTS: No dislocation. The joint spaces are normal. SOFT TISSUES: The soft tissues are unremarkable. IMPRESSION: No acute osseous abnormality. /[place]
--- NOTE | 2025-07-12 20:53 | HMCIMG ---
EXAM: CT Head Without IV contrast. CLINICAL HISTORY: head trauma, headache TECHNIQUE: Axial computed tomography images of the head/brain without intravenous contrast. COMPARISON: Prior CT head dated November 27, 2018. FINDINGS: BRAIN: No evidence of acute hemorrhage. No mass lesion. No CT evidence for acute territorial infarct. No midline shift or extra-axial collections. VENTRICLES: No hydrocephalus. ORBITS: The orbits are unremarkable. SINUSES AND MASTOIDS: The paranasal sinuses and mastoid air cells are clear. BONES: No fracture. SOFT TISSUES: Unremarkable. IMPRESSION: No acute intracranial abnormality. /[place]
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
--- NOTE | 2025-07-12 21:50 | NUR ---
THE PATIENT HAS REFUSED A PRIMARY NURSE ASSESSMENT AND A READING OF VITALS SO THAT HE CAN LEAVE. ER MD MADE AWARE. ER CHARGE MADE AWARE.
== END 2025-07-12 21:53 | disposition home or self-care (01) ==
LOC: EDH 18:27
DX: S40.021A Contusion of right upper arm, initial encounter (principal); S50.02XA Contusion of left elbow, initial encounter; S00.93XA Contusion of unspecified part of head, initial encounter; S60.222A Contusion of left hand, initial encounter; S00.211A Abrasion of right eyelid and periocular area, initial encounter; E78.00 Pure hypercholesterolemia, unspecified; I10 Essential (primary) hypertension; I25.2 Old myocardial infarction; F17.200 Nicotine dependence, unspecified, uncomplicated; Y08.89XA Assault by other specified means, initial encounter; Y93.89 Activity, other specified; Y92.89 Other specified places as the place of occurrence of the external cause; Y99.8 Other external cause status
CPT/HCPCS: 70450; 73060; 73070; 73130; 99284